=== PATIENT | male | born 1960 | race American Indian/Alaskan Native ===

== ENCOUNTER 2022-01-07 01:43 | Emergency (ER) | payer OTHER ==
[2022-01-07] MEDS ORDERED: MORPHINE 4 MG/1 ML INJ IM ONE (04:05)
[2022-01-07] MEDS ORDERED: ONDANSETRON 4 MG/2 ML INJ IM ONE (04:05)
--- NOTE | 2022-01-07 04:44 | Emergency Department Report ---
ED General Adult HPI - General Chief complaint: Extremity Problem,Nontraumatic Stated complaint: RT LEG SWOLLEN AND PAIN Time Seen by Provider: 01/07/22 04:05 Source: patient Mode of arrival: Wheelchair Limitations: No Limitations - History of Present Illness Initial comments: Patient 61-year-old male who is status post right knee ORIF on 12/27/2021. Pat madelin states he is in rehab and had some swelling and pain in his knee and leg for the past week. Seen in urgent care 2 days ago had ultrasound rule out DVT, and x-rays. States he called his surgeon today. However cannot see them until tomorrow currently taking tramadol states tramadol is not controlling pain. Pain is described as 7/10 aching soreness and with swelling. Patient remains amatory with walker as per postop orders. Patient will see surgeon tomorrow at [facility] Dr[facility] [place]. Patient denies fall injury or trauma. Severity scale (0 -10): 8 - Related Data Previous Rx's Medication Instructions Recorded Last Taken Type HYDROcodone/APAP 5-325 [[place] 1 each PO Q6HR PRN #6 tablet 01/07/22 Unknown Rx 5-325 mg TAB] Allergies Allergy/AdvReac Type Severity Reaction Status Date / Time No Known Allergies Allergy Unverified 01/07/22 01:49 ED Review of Systems ROS: Stated complaint: RT LEG SWOLLEN AND PAIN Other details as noted in HPI Constitutional: denies: chills, fever Eyes: denies: eye pain, eye discharge, vision change ENT: denies: ear pain, throat pain Respiratory: denies: cough, shortness of breath, wheezing Cardiovascular: as per HPI Endocrine: no symptoms reported Gastrointestinal: denies: abdominal pain, nausea, diarrhea Genitourinary: denies: urgency, dysuria Musculoskeletal: arthralgia, other (Right lower extremity.) Skin: denies: rash, lesions Neurological: denies: headache, weakness, paresthesias Psychiatric: denies: anxiety, depression Hematological/Lymphatic: denies: easy bleeding, easy bruising ED Past Medical Hx - Medications Home Medications: Home Medications Medication Instructions Recorded Confirmed Last Taken Type HYDROcodone/APAP 5-325 [[place] 1 each PO Q6HR PRN #6 tablet 01/07/22 Unknown Rx 5-325 mg TAB] ED Physical Exam - General Limitations: No Limitations General appearance: alert, in no apparent distress - Head Head exam: Present: normocephalic - Eye Eye exam: Present: PERRL, EOMI Pupils: Present: normal accommodation - ENT ENT exam: Present: mucous membranes moist - Neck Neck exam: Present: normal inspection, full ROM. Absent: tenderness - Respiratory Respiratory exam: Present: normal lung sounds bilaterally. Absent: respiratory distress, wheezes, stridor - Cardiovascular Cardiovascular Exam: Present: regular rate, normal rhythm, normal heart sounds. Absent: systolic murmur, diastolic murmur, rubs, gallop - GI/Abdominal GI/Abdominal exam: Present: soft, normal bowel sounds. Absent: distended, tenderness, bruit, hernia - Rectal Rectal exam: Present: deferred - Expanded Lower Extremity Exam Right Upper Leg exam: Present: full ROM, swelling. Absent: tenderness Knee exam: Present: full ROM, tenderness, swelling, pain w/ pronatio n/supination, full knee extension. Absent: abrasion, laceration, ecchymosis, deformity, crepidus, dislocation, erythema, effusion, posterior draw sign Lower Leg exam: Present: full ROM, swelling. Absent: tenderness, laceration, ecchymosis, deformity, crepidus, dislocation, erythema, palpable cord, Lennox's sign Ankle exam: Present: full ROM, swelling. Absent: tenderness Foot/Toe exam: Present: full ROM, swelling. Absent: tenderness, abrasion, laceration Neuro vascular tendon exam: Absent: pulse deficit, motor deficit, sensory deficit, tendon deficit Gait: Positive: observed and limited by pain - Back Exam Back exam: Present: normal inspection, full ROM. Absent: CVA tenderness (R), CVA tenderness (L) - Neurological Exam Neurological exam: Present: alert, oriented X3, CN II-XII intact, reflexes normal. Absent: motor sensory deficit - Expanded Neurological Exam Expanded Patient oriented to: Present: person, place, time Speech: Present: fluid speech Motor strength exam: RUE: 5, LUE: 5, RLE: 4, LLE: 5 DTR: knee (R): 1+, knee (L): 1+ Best Eye Response (Jonn): (4) open spontaneously Best Motor Response (Jonn): (6) obeys commands Best Verbal Response ([place]): (5) oriented Jonn Total: 15 - Psychiatric Psychiatric exam: Present: normal affect, normal mood - Skin Skin exam: Present: warm, dry, intact, normal color, other (Right anterior knee dressing dry and intact.). Absent: rash ED Course Vital Signs 01/07/22 01:45 Temperature 97.8 F Pulse Rate 66 Respiratory 20 Rate Blood Pressure 158/75 [Left] O2 Sat by Pulse 99 Oximetry ED Medical Decision Making - Radiology Data Radiology results: image reviewed ORIF intact no fracture no soft tissue abnormality. - Medical Decision Making Patient had negative DVT study 2 days ago knee x-ray is normal ORIF intact hardware. Distal pulses are intact +2 EXHIBIT PREPARATOR is less than 3 seconds bilateral. Patient remains amatory to baseline with walker. Plan follow-up with orthopedic surgery today., Patient states pain is currently improved to 2/10 at this time. 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 Patient DC'd home in stable condition at this time. Critical care attestation.: If time is entered above; I have spent that time in minutes in the direct care of this critically ill patient, excluding procedure time. ED Disposition Clinical Impression: Lower extremity pain, right Disposition: 01 HOME / SELF CARE / HOMELESS Is pt being admited?: No Does the pt Need Aspirin: No Condition: Stable Instructions: Pain Relief Before and After Surgery Additional Instructions: Take medications as prescribed, follow-up with orthopedic surgery today as discussed and agreed. Follow-up with your [place] doctor today follow-up with your orthopedic surgeon today return to emergency department should symptoms worsen. Prescriptions: HYDROcodone/APAP 5-325 [[place] 5-325 mg TAB] 1 each PO Q6HR PRN #6 tablet PRN Reason: Pain Referrals: PRIMARY CARE, [Referring] - 3-5 Days Forms: Work/School Release Form(ED) Time of Disposition: 04:53
--- NOTE | 2022-01-07 04:49 | XRay Report ---
RIGHT KNEE 3 VIEWS INDICATION / CLINICAL INFORMATION: Right knee pain, swelling post total knee replacement COMPARISON: None available. FINDINGS: BONES and JOINT(S): No acute fracture or subluxation. No significant arthritis. A total knee arthropl asty appears unremarkable. SOFT TISSUES: There is mild generalized edema without other significant abnormalities. ADDITIONAL FINDINGS: None. IMPRESSION: 1. Mild right knee edema without other significant abnormalities. 2. Unremarkable appearing total knee arthroplasty. Signer Name: Negro Fry MD Signed: 01/07/2022 4:44 AM Workstation Name: [id number]
[2022-01-07 05:10] VITALS: BP 152/72
== END 2022-01-07 05:28 | disposition home or self-care (01) ==
LOC: ED 01:43
DX: M79.661 Pain in right lower leg (principal)
CPT/HCPCS: 73562; 96372; 99283; J2270; J2405